=== PATIENT | female | born 1980 | race Caucasian/White ===

== ENCOUNTER 2016-06-09 14:48 | Emergency (ER) | payer OTHER ==
[~2016-06-09] VITALS: Wt 78.0 kg
[~2016-06-09 14:48] MED LIST: CIPR500T4 PO; FERR325C PO; LORA-441 PO; MECL25TA2 PO; METH10TA2 PO; ONDA4TAB35 PO; ONDA4TAB8 PO; PREN1TAB62 PO
[2016-06-09] MEDS ORDERED: IBUP-1542 PO (15:21)
[2016-06-09] MEDS ORDERED: AZIT250T94 PO (15:21)
[2016-06-09] MEDS ORDERED: ALBU8.5H3 INH (15:22)
[2016-06-09] MEDS ORDERED: CETI10CA PO (15:22)
[2016-06-09] MEDS ORDERED: ACET500C5 PO (15:22)
--- NOTE | 2016-06-09 15:29 | ERD ---
ER Documentation Chief Complaint Date/Time DATE: 06/09/16 TIME: 15:26 Chief Complaint COUGH AND CONGESTION FOR THE PAST 2 DAYS. NO RECENT FEVERS. HPI Is a 36-year-old female who presents to the emergency department today complaining of cough and congestion for the past 2 days. Patient states that her son had bronchitis and she think she caught it from him. She denies any fevers. States she is currently taking amoxicillin for a toothache that this is not helping her. Denies any vomiting or diarrhea. ROS All systems reviewed and are negative except as per history of present illness. Medications Home Meds Active Scripts Cetirizine Hcl* (Zyrtec*) 10 Mg Capsule, 10 MG PO DAILY, #10 TAB.CHEW Prov:EVELYN GALLEGOS PA-C 06/09/16 Albuterol Sulfate* (Proair HFA*) 8.5 Gm Hfa.aer.ad, 2 PUFF INH Q4, #1 INHALER Prov:EVELYN GALLEGOS PA-C 06/09/16 Acetaminophen* (Tylophen*) 500 Mg Capsule, 1 CAP PO Q6H Y for PAIN AND OR ELEVATED TEMP, #30 CAP Prov:EVELYN GALLEGOS PA-C 06/09/16 Ibuprofen* (Motrin*) 600 Mg Tab, 600 MG PO Q6, #30 TAB Prov:EVELYN GALLEGOSC 06/09/16 Azithromycin* (Zithromax*) 250 Mg Tablet, 250 MG PO .TheaPACK DIRECTED, #6 TAB TAKE 500 MG (2 TABS) THE FIRST DAY THEN 250 MG (1 TAB) DAYS 2-5 Prov:EVELYN GALLEGOSC 06/09/16 Ondansetron Hcl* (Zofran*) 4 Mg Tablet, 4 MG PO Q6H for NAUSEA AND/OR VOMITING, #30 TAB Prov:EVELYN GALLEGOSC 11/07/15 Meclizine Hcl* (Antivert*) 25 Mg Tablet, 25 MG PO Q6H Y for DIZZINESS, #20 TAB Prov:EVELYN GALLEGOSC 11/07/15 Ciprofloxacin Hcl* (Ciprofloxacin Hcl*) 500 Mg Tablet, 500 MG PO BID for 3 Days , TAB Prov:EVELYN GALLEGOSC 11/07/15 Meclizine Hcl* (Antivert*) 25 Mg Tablet, 25 MG PO Q6H Y for vertigo, #20 TAB Prov:JALEN AGUIRRE DO 09/04/15 Ondansetron Hcl* (Zofran* ODT) 4 mg -ODT Tab.disper, 4 MG PO Q6 Y for NAUSEA AND /OR VOMITING, #10 TAB Prov:JALEN AGUIRRE DO 09/04/15 Lorazepam* (Ativan*) 0.5 Mg Tablet, 0.5 MG PO Q8H Y for ANXIETY, #10 TAB Prov:JALEN AGUIRRE DO 09/04/15 Reported Medications Methadone Hcl* (Methadone*) 10 Mg Tab, 20 MG PO DAILY, TAB 03/29/15 Ferrous Sulfate (Iron) 325 Mg Capsr, 325 MG PO 11/11/14 Vit-Iron Fumarate-FA ( Vitamin Tablet) 1 Each Tablet, 1 TAB PO DAILY, TAB 11/11/14 Allergies Allergies: Coded Allergies: No Known Allergy (Unverified , 03/28/15) PMhx/Soc History of Surgery: Yes (cholecystectomy) Anesthesia Reaction: No Hx Neurological Disorder: No Hx Respiratory Disorders: No Hx Cardiac Disorders: No Hx Psychiatric Problems: No Hx Miscellaneous Medical Probl: Yes (esrd) Hx Alcohol Use: No Hx Substance Use: No Hx Tobacco Use: No Physical Exam Vitals Vital Signs Date Time Temp Pulse Resp B/P Pulse Ox O2 Delivery O2 Flow Rate FiO2 06/09/16 15:01 98.1 110 21 140/68 98 Physical Exam Const: No acute distress Head: Atraumatic Eyes: Normal Conjunctiva ENT: Ears TMs normal. Nose no drainage. Throat no erythema no exudate. Right side of cheek with mild swelling and evidence of tooth fracture. Neck: Full range of motion..~ No meningismus. Resp: Clear to auscultation bilaterally Cardio: Regular rate and rhythm, no murmurs Abd: Soft, non tender, non distended. Normal bowel sounds Skin: No petechiae or rashes Neur: Awake and alert Psych: Normal Mood and Affect Procedures/MDM This is a 36-year-old female who presents to the emergency department today complaining of cough and congestion for the past 2 days. Vision has been exposed to bronchitis. On physical exam patient is afebrile here in the emergency department. She is tachycardic at 110 over oxygen saturation is 98%. It is not felt the patient requires a chest x-ray. I was suspicion for PE, abscess, pneumothorax, PE. Patient's symptoms at this time most consistent with URI versus bronchitis. Low suspicion for pneumonia. I have low suspicion for strep pharyngitis, peritonsillar abscess, retropharyngeal abscess, otitis media, PNA, sinusitis, abscess, meningitis, sepsis, or other acute infectious bacterial process. He is already taking amoxicillin however I discussed the patient with Dr. Perez and he feels that it is safe for the patient to take azithromycin as well. Patient will be discharged home on azithromycin, Zyrtec, Tylenol and Motrin and an inhaler. At this time the patient is stable for discharge and outpatient management. They should follow up with their PCP in the next 1-2. They may return to the emergency department sooner if symptoms persist or worsen. Patient understood and agreed with the plan. Discussed the patient with Dr. Perez and he is in agreement with the plan. Departure Diagnosis: Primary Impression: Upper respiratory infection URI type: unspecified URI Qualified Code: J06.9 - Upper respiratory tract infection, unspecified type Condition: Fair Patient Instructions: Preventing Common Respiratory Infections Referrals: ALIX TORRES (PCP) Additional Instructions: Call your primary care doctor TOMORROW for an appointment during the next 1-2 days.See the doctor sooner or return here if your condition worsens before your appointment time. Take antibiotics as prescribed Take ibuprofen or Tylenol for pain or fever Use inhaler for cough Take Zyrtec for congestion EVELYN GALLEGOS PA-C Jun 09, 2016 15:29
== END 2016-06-09 15:27 | disposition home or self-care (01) ==
LOC: E/R 14:48
DX: J06.9 Acute upper respiratory infection, unspecified (principal); N18.6 End stage renal disease; Z99.2 Dependence on renal dialysis
CPT/HCPCS: 99284

== ENCOUNTER 2016-07-05 17:34 | Emergency (ER) | payer OTHER ==
[~2016-07-05] VITALS: Wt 98.0 kg
[~2016-07-05 17:34] MED LIST changes: +ACET500C5 PO; +ALBU8.5H3 INH; +AZIT250T94 PO; +CETI10CA PO; +IBUP-1542 PO
[2016-07-05] MEDS ORDERED: LEVO500T72 PO (18:24)
[2016-07-05] MEDS ORDERED: D-ME473S18 PO (18:26)
--- NOTE | 2016-07-05 18:43 | ERD ---
ER Documentation Chief Complaint Date/Time DATE: 07/05/16 TIME: 18:39 Chief Complaint COUGH AND CONGESTION FOR A WEEK. NO RELIEF WITH ABX HPI This is a 36-year-old female who presents to the emergency department today complaining of a persistent cough. Patient was seen on June 09 and was given antibiotics and she stated that she symptomatically felt better however she has continued with the cough. She states that she has some rib pain and feels some pressure that is worse after she coughs. Denies any fevers or chills. ROS All systems reviewed and are negative except as per history of present illness. Medications Home Meds Active Scripts Dextromethorphan Hb-Promethazine Hcl (Promethazine DM Syrup) 473 Ml Syrup, 5 ML PO Q6H Y for COUGH, #4 OZ Prov:EVELYN GALLEGOS PA-C 07/05/16 Levofloxacin* (Levaquin*) 500 Mg Tablet, 500 MG PO DAILY for 7 Days, TAB Prov:EVELYN GALLEGOS PA-C 07/05/16 Cetirizine Hcl* (Zyrtec*) 10 Mg Capsule, 10 MG PO DAILY, #10 TAB.CHEW Prov:EVELYN GALLEGOS PA-C 06/09/16 Albuterol Sulfate* (Proair HFA*) 8.5 Gm Hfa.aer.ad, 2 PUFF INH Q4, #1 INHALER Prov:EVELYN GALLGEOS PA-C 06/09/16 Acetaminophen* (Tylophen*) 500 Mg Capsule, 1 CAP PO Q6H Y for PAIN AND OR ELEVATED TEMP, #30 CAP Prov:EVELYN GALLEGOS PA-C 06/09/16 Ibuprofen* (Motrin*) 600 Mg Tab, 600 MG PO Q6, #30 TAB Prov:EVELYN GALLEGOSC 06/09/16 Azithromycin* (Zithromax*) 250 Mg Tablet, 250 MG PO .KASIA DIRECTED, #6 TAB TAKE 500 MG (2 TABS) THE FIRST DAY THEN 250 MG (1 TAB) DAYS 2-5 Prov:EVELYN GALLEGOS PA-C 06/09/16 Ondansetron Hcl* (Zofran*) 4 Mg Tablet, 4 MG PO Q6H for NAUSEA AND/OR VOMITING, #30 TAB Prov:GAEL GALLEGOSNasir POWELL-C 11/07/15 Meclizine Hcl* (Antivert*) 25 Mg Tablet, 25 MG PO Q6H Y for DIZZINESS, #20 TAB Prov:HANNAHEVELYNNic POWELL-C 11/07/15 Ciprofloxacin Hcl* (Ciprofloxacin Hcl*) 500 Mg Tablet, 500 MG PO BID for 3 Days , TAB Prov:EVELYN YOUNG-C 11/07/15 Meclizine Hcl* (Antivert*) 25 Mg Tablet, 25 MG PO Q6H Y for vertigo, #20 TAB Prov:JALEN AGUIRRE 09/04/15 Ondansetron Hcl* (Zofran* ODT) 4 mg -ODT Tab.disper, 4 MG PO Q6 Y for NAUSEA AND /OR VOMITING, #10 TAB Prov:[facility] 09/04/15 Lorazepam* (Ativan*) 0.5 Mg Tablet, 0.5 MG PO Q8H Y for ANXIETY, #10 TAB Prov:[facility] 09/04/15 Reported Medications Methadone Hcl* (Methadone*) 10 Mg Tab, 20 MG PO DAILY, TAB 03/29/15 Ferrous Sulfate (Iron) 325 Mg Capsr, 325 MG PO 11/11/14 Vit-Iron Fumarate-FA ( Vitamin Tablet) 1 Each Tablet, 1 TAB PO DAILY, TAB 11/11/14 Allergies Allergies: Coded Allergies: No Known Allergy (Unverified , 03/28/15) PMhx/Soc History of Surgery: Yes (cholecystectomy) Anesthesia Reaction: No Hx Neurological Disorder: No Hx Respiratory Disorders: No Hx Cardiac Disorders: No Hx Psychiatric Problems: No Hx Miscellaneous Medical Probl: Yes (esrd) Hx Alcohol Use: No Hx Substance Use: No Hx Tobacco Use: No Physical Exam Vitals Vital Signs Date Time Temp Pulse Resp B/P Pulse Ox O2 Delivery O2 Flow Rate FiO2 07/05/16 17:44 98.2 95 20 124/72 98 Physical Exam Const: Talkative, well-appearing, no acute distress Head: Atraumatic Eyes: Normal Conjunctiva ENT: Ears TMs normal. Nose no drainage. Throat no erythema no exudate Neck: Full range of motion..~ No meningismus. Resp: Clear to auscultation bilaterally. No absent breath sounds. No wheezing. Cardio: Regular rate and rhythm, no murmurs Abd: Soft, non tender, non distended. Normal bowel sounds Skin: No petechiae or rashes Neur: Awake and alert Psych: Normal Mood and Affect Procedures/MDM This is a 36-year-old female who presents to emergency department today complaining of a persistent cough. I actually saw this patient on June 09, 2016 and are in the area and patient was given a prescription for azithromycin to treat possible pneumonia. She was also given an inhaler and other over-the- counter cough medications. Patient reported feeling symptomatically better but has still persisted with his cough. Given that this is the patient's second visit I explained to the patient after seeing her in the [facility] area again today that it would be best to obtain a chest x-ray however patient has refused a chest x-ray and states that she just wants to try new antibiotics and go home as she has her child here and does not want a chest x-ray at this time. I explained to the patient that I would document that she was refusing a chest x- ray and patient understood. She is afebrile and her oxygen saturation is 98%. She is not tachycardic. I have low suspicion for for PE, abscess, pneumothorax. Her symptoms are most likely viral however I explained to the patient that I could try different antibiotic and that is what patient desired at this time. Patient was given a prescription for Levaquin and promethazine for cough. At this time patient has persistent cough of uncertain etiology. She indicated that she wanted to just at least try the new antibiotics and would follow-up with her primary care doctor if there is no improvement. I have low suspicion for strep pharyngitis, peritonsillar abscess, retropharyngeal abscess, otitis media, PNA, sinusitis, abscess, meningitis, sepsis, or other acute infectious bacterial process. At this time the patient is stable for discharge and outpatient management. Patient should follow up with their PCP in the next 1-2 days. They may return to the emergency department sooner for any persistent or worsening of symptoms. Patient understood and agreed with the plan. Departure Diagnosis: Primary Impression: Cough Condition: Fair Patient Instructions: Cough, Chronic, Uncertain Cause, (Adult) Referrals: ALIX TORRES (PCP) Additional Instructions: Call your primary care doctor TOMORROW for an appointment during the next 1-2 days.See the doctor sooner or return here if your condition worsens before your appointment time. Take antibiotics as prescribed Drink plenty of fluids Take Phenergan for cough EVELYN GALLEGOS PA-C Jul 05, 2016 18:43
== END 2016-07-05 18:27 | disposition home or self-care (01) ==
LOC: FTE 17:34 → E/R 18:27
DX: R05 Cough (principal); N18.6 End stage renal disease; Z99.2 Dependence on renal dialysis
CPT/HCPCS: 99284

== ENCOUNTER 2016-07-26 10:13 | Emergency (ER) | payer OTHER ==
[~2016-07-26] VITALS: Wt 79.5 kg
[~2016-07-26 10:13] MED LIST changes: +D-ME473S18 PO; +LEVO500T72 PO
--- NOTE | 2016-07-26 14:00 | RADRPT ---
PROCEDURE: Chest Radiograph. CLINICAL INDICATION: Cough TECHNIQUE: Single frontal chest radiograph. COMPARISON: Chest radiograph 10/31/2013 FINDINGS: The cardiomediastinal silhouette is within normal limits. No infiltrate or effusion is seen. Th e bones are intact. IMPRESSION: 1. Unremarkable chest radiograph. RPTAT: KK .Hector Coronel MD, MD Date Time Electronically viewed and signed by .Hector Coronel MD, on 07/26/2016 14:00 .B/
[2016-07-26] MEDS ORDERED: ACETAMINOPHEN 500 MG TAB PO STA (14:19)
[2016-07-26] MEDS ORDERED: BENZ100C70 PO (14:33)
--- NOTE | 2016-07-26 14:42 | ERD ---
ER Documentation Chief Complaint Date/Time DATE: 07/26/16 TIME: 14:36 Chief Complaint COUGH INTERMITTENT FOR 3MONTHS. NOW HAS CHEST WALL PAIN AND BACK PAIN HPI Patient is a 36-year-old female who presents to the emergency department with a cough 3 months. Patient states that her cough is dry in nature. Patient denies any phlegm production. Patient states that she has tried numerous antibiotics as well as inhalers with no alleviation of treatment. Patient denies any fever, chills, nausea, vomiting, chest pain, shortness of breath, arm pain, jaw pain, diaphoresis or loss of consciousness. Patient states that she is having some mild left-sided rib pain however denies any recent falls or trauma. Patient denies any throat pain, rhinorrhea, ear pain. She does have some mild lower back pain. She denies any saddle anesthesia, urinary incontinence, stool incontinence, IV drug use. Note, patient was seen last year on 07-05-16 for similar complaints. Patient denied history of smoking. At the time patient denied chest x-ray imaging and stated she only wanted to be treated for her cough with an antibiotic. Today patient is requesting chest x- ray. ROS All systems reviewed and are negative except as per history of present illness. Medications Home Meds Active Scripts Dextromethorphan Hb-Promethazine Hcl (Promethazine DM Syrup) 473 Ml Syrup, 5 ML PO Q6H Y for COUGH, #4 OZ Prov:EVELYN GALLEGOS PA-C 07/05/16 Levofloxacin* (Levaquin*) 500 Mg Tablet, 500 MG PO DAILY for 7 Days, TAB Prov:EVELYN GALLEGOS PA-C 07/05/16 Cetirizine Hcl* (Zyrtec*) 10 Mg Capsule, 10 MG PO DAILY, #10 TAB.CHEW Prov:EVELYN GALLEGOS PA-C 06/09/16 Albuterol Sulfate* (Proair HFA*) 8.5 Gm Hfa.aer.ad, 2 PUFF INH Q4, #1 INHALER Prov:EVELYN GALLEGOS PA-C 06/09/16 Acetaminophen* (Tylophen*) 500 Mg Capsule, 1 CAP PO Q6H Y for PAIN AND OR ELEVATED TEMP, #30 CAP Prov:EVELYN GALLEGOS PA-C 06/09/16 Ibuprofen* (Motrin*) 600 Mg Tab, 600 MG PO Q6, #30 TAB Prov:EVELYN GALLEGOS PA-C 06/09/16 Azithromycin* (Zithromax*) 250 Mg Tablet, 250 MG PO .TheaPACK DIRECTED, #6 TAB TAKE 500 MG (2 TABS) THE FIRST DAY THEN 250 MG (1 TAB) DAYS 2-5 Prov:EVELYN GALLEGOS PA-C 06/09/16 Ondansetron Hcl* (Zofran*) 4 Mg Tablet, 4 MG PO Q6H for NAUSEA AND/OR VOMITING, #30 TAB Prov:EVELYN GALLEGOS PA-C 11/07/15 Meclizine Hcl* (Antivert*) 25 Mg Tablet, 25 MG PO Q6H Y for DIZZINESS, #20 TAB Prov:EVELYN GALLEGOS PA-C 11/07/15 Ciprofloxacin Hcl* (Ciprofloxacin Hcl*) 500 Mg Tablet, 500 MG PO BID for 3 Days , TAB Prov:EVELYN GALLEGOS PA-C 11/07/15 Meclizine Hcl* (Antivert*) 25 Mg Tablet, 25 MG PO Q6H Y for vertigo, #20 TAB Prov:CARLAJALEN 09/04/15 Ondansetron Hcl* (Zofran* ODT) 4 mg -ODT Tab.disper, 4 MG PO Q6 Y for NAUSEA AND /OR VOMITING, #10 TAB Prov:CARLA,[facility] 09/04/15 Lorazepam* (Ativan*) 0.5 Mg Tablet, 0.5 MG PO Q8H Y for ANXIETY, #10 TAB Prov:CARLA,SOLOMON [facility] 09/04/15 Reported Medications Methadone Hcl* (Methadone*) 10 Mg Tab, 20 MG PO DAILY, TAB 03/29/15 Ferrous Sulfate (Iron) 325 Mg Capsr, 325 MG PO 11/11/14 Vit-Iron Fumarate-FA ( Vitamin Tablet) 1 Each Tablet, 1 TAB PO DAILY, TAB 11/11/14 Discontinued Scripts Benzonatate* (Tessalon Perle*) 100 Mg Capsule, 100 MG PO Q8H Y for COUGH, #20 CAP Prov:GUI ROMAN PA-C 07/26/16 Allergies Allergies: Coded Allergies: No Known Allergy (Unverified , 07/26/16) PMhx/Soc History of Surgery: Yes (cholecystectomy) Anesthesia Reaction: No Hx Neurological Disorder: No Hx Respiratory Disorders: No Hx Cardiac Disorders: No Hx Psychiatric Problems: No Hx Miscellaneous Medical Probl: Yes (esrd) Hx Alcohol Use: No Hx Substance Use: No Hx Tobacco Use: No Smoking Status: Never smoker Physical Exam Vitals Vital Signs Date Time Temp Pulse Resp B/P Pulse Ox O2 Delivery O2 Flow Rate FiO2 07/26/16 10:23 98.4 82 22 136/87 100 Physical Exam GENERAL: Well-developed, well-nourished female. Appears in no acute distress. Speaking in full sentences. No abdominal retractions, no nasal flaring, no tripoding. HEAD: Normocephalic, atraumatic. No deformities or ecchymosis. EYE: Pupils equal, round, and reactive to light. EOMs intact. No conjunctival erythema. No eye discharge. ENT: External ear without any masses or tenderness. Auditory canals clear bilaterally. TM visualized bilaterally, non-erythematous, non-bulging. Nasal mucosa pink with no discharge. Oropharynx is pink without any tonsillar erythema or exudates. No uvula deviation. No kissing tonsils. NECK: Supple. No meningismus. Normal ROM of the neck. CHEST: Tender to palpation of left chest wall over lower ribs. LUNG: Clear to auscultation bilaterally. No rhonchi, wheezing, rales or coarse breath sounds. HEART: Regular rate and rhythm. No murmurs, rubs or gallops. BACK: No midline tenderness. EXTREMITES: Equal pulses bilaterally. No peripheral clubbing, cyanosis or edema. No unilateral leg swelling. NEUROLOGIC: Alert and oriented to person, place and time. Moving all four extremities. 5/5 strength in all extremities. Normal speech. Steady gait. SKIN: Normal color. Warm and dry. No rashes or lesions. Results 24 hrs Current Medications Medications (Trade) Dose Ordered Sig/Randell Route PRN Reason Start Time Stop Time Status Last Admin Dose Admin Acetaminophen (Tylenol Tab) 1,000 mg ONCE STAT PO 07/26/16 14:19 07/26/16 14:20 DC 07/26/16 14:26 Procedures/MDM ED COURSE: The patient was stable throughout ED course. I kept the patient and/or family informed of laboratory and diagnostic imaging results throughout the ED course. DIAGNOSTIC IMAGING: Read by radiologist. DIAGNOSTIC IMAGING REPORT Patient: LIZA BEEBE : 1980 Age: 36 Sex: F MR #: [id number] DOS: 07/26/16 1253 Ordering MD: GUI ROMAN PA-C Location: [facility] Room/Bed: PROCEDURE: Chest Radiograph. CLINICAL INDICATION: Cough TECHNIQUE: Single frontal chest radiograph. COMPARISON: Chest radiograph 10/31/2013 FINDINGS: The cardiomediastinal silhouette is within normal limits. No infiltrate or effusion is seen. The bones are intact. IMPRESSION: 1. Unremarkable chest radiograph. RPTAT: KK .Hector Coronel MD, MD Date Time Electronically viewed and signed by .Hector Coronel MD, MD on 2016 14:00 .B/ CC: GUI ROMAN PA-C MEDICAL DECISION MAKING: Patient is a 36-year-old female who presents to the emergency department with a chronic cough x3 months. Patient has been seen here for numerous visits for similar complaints. Patient denied any chest pain or shortness of breath. Vital signs were reviewed. Patient is afebrile. Patient was not hypoxic. Patient was hemodynamically stable. CXR was negative. At this time, the patient' s cough is most consistent with chronic cough of unknown etiology. Low suspicion for pleural effusion, pneumothorax or pneumonia at this time. Low suspicion for acute bronchitis given that patient's has recently take numerous antibiotics. Low suspicion for GERD, rib fracture or rib contusion. I did offer to provide the patient will cough syrup/Tessalon perles however she declined. Patient stated that she did not wish to take any additional medications at this time, and solely wished a CXR today. DISCHARGE: At this time, patient is stable for discharge and outpatient management. I have instructed the patient to follow-up with his/her primary care physician in 1-2 days. I advised patient that she may need to follow-up with grocery buyer for further management of her symptoms. I have discussed with the patient the possibility of needing to see a specialist for further workup and imaging studies if symptoms persist. I have instructed the patient to promptly return to the ER for any new or worsening symptoms including increased pain, fever, nausea, vomiting, weakness or LOC. The patient and/or family expressed understanding of and agreement with this plan. All questions were answered. Home care instructions were provided. Departure Diagnosis: Primary Impression: Cough Condition: Stable Patient Instructions: Cough, Chronic, Uncertain Cause, (Adult) Referrals: ALIX TORRES (PCP) [facility] YOU HAVE RECEIVED A MEDICAL SCREENING EXAM AND THE RESULTS INDICATE THAT YOU DO NOT HAVE A CONDITION THAT REQUIRES URGENT TREATMENT IN THE EMERGENCY DEPARTMENT. FURTHER EVALUATION AND TREATMENT OF YOUR CONDITION CAN WAIT UNTIL YOU ARE SEEN IN YOUR DOCTORS OFFICE WITHIN THE NEXT 1-2 DAYS. IT IS YOUR RESPONSIBILITY TO MAKE AN APPOINTMENT FOR FOLOW-UP CARE. IF YOU HAVE A PRIMARY DOCTOR --you should call your primary doctor and schedule an appointment IF YOU DO NOT HAVE A PRIMARY DOCTOR YOU CAN CALL OUR PHYSICIAN REFERRAL HOTLINE AT IF YOU CAN NOT AFFORD TO SEE A PHYSICIAN YOU CAN CHOSE FROM THE FOLLOWING [facility] [address] [facility]. [facility] [address] [facility]. [facility] [address] [facility] [facility] [address] [facility] [facility] [address] [facility]. [facility]. [address] [facility]. [facility] YOU HAVE RECEIVED A MEDICAL SCREENING EXAM AND THE RESULTS INDICATE THAT YOU DO NOT HAVE A CONDITION THAT REQUIRES URGENT TREATMENT IN THE EMERGENCY DEPARTMENT. FURTHER EVALUATION AND TREATMENT OF YOUR CONDITION CAN WAIT UNTIL YOU ARE SEEN IN YOUR DOCTORS OFFICE WITHIN THE NEXT 1-2 DAYS. IT IS YOUR RESPONSIBILITY TO MAKE AN APPOINTMENT FOR FOLOW-UP CARE. IF YOU HAVE A PRIMARY DOCTOR --you should call your primary doctor and schedule and appointment IF YOU DO NOT HAVE A PRIMARY DOCTOR YOU CAN CALL OUR PHYSICIAN REFERRAL HOTLINE AT . IF YOU CAN NOT AFFORD TO SEE A PHYSICIAN YOU CAN CHOSE FROM THE FOLLOWING [facility] INSTITUTIONS: [facility] [address] [place] [address] [facility] [address] [place] [address] [facility] [address] [place] [address] Additional Instructions: Call your primary care doctor TOMORROW for an appointment during the next 1-2 days.See the doctor sooner or return here if your condition worsens before your appointment time. Patient will need to follow-up with a grocery buyer for further management of her ongoing cough. GUI ROMAN PA-C Jul 26, 2016 14:42
== END 2016-07-26 15:13 | disposition home or self-care (01) ==
LOC: FTE 10:13
DX: R05 Cough (principal); N18.6 End stage renal disease; Z99.2 Dependence on renal dialysis
CPT/HCPCS: 71010; Z7502; Z7610